=== PATIENT | female | born 1985 ===

== ENCOUNTER 2016-08-02 11:22 | Inpatient (IN) | payer OTHER ==
[~2016-08-02] VITALS: Ht 165.1 cm; Wt 79.5 kg
[2016-08-02] VITALS (14 sets, daily range): BP systolic 101–129; BP diastolic 63–75; PULSE 73–99; TEMP 98–98.4
[2016-08-02] MEDS ORDERED: PRENATAL1 TA7 PO (11:33)
[2016-08-02] MEDS ORDERED: COLACE 100100 MG/CAP PO (11:34)
[2016-08-02] MEDS ORDERED: ZOVIRAX800 MG PO (11:34)
[2016-08-02] MEDS ORDERED: PROBIOTIC FORMU1 CAP PO (11:35)
[2016-08-02] MEDS ORDERED: QUALITY VA PO (11:36)
[2016-08-02] MEDS ORDERED: MOTRIN 800800 MG/TAB PO (12:18)
[2016-08-02] MEDS ORDERED: PERCOCET 325 MG1 TA2 PO (12:18)
[2016-08-02 12:20] LABS: BASO # 0.1 (0.0-0.2); BASO % 0.4 % (0.0-2.0); EOS % 0.2 % (0-4.0); GRAN # 11.7 (1.4-6.5); GRAN % 81.7 % (42.2-75.2); LYMPH # 1.7 (1.2-3.4); LYMPH % 11.6 % (20.0-51.0); MEAN CELL VOLUME 90 fl (80.0-100.0); MEAN CORPUSCULAR HGB CONC 35 g/dl (33.0-37.0); MEAN PLATELET VOLUME 10.7 fl (7.4-10.4); MONO # 0.7 (0.1-0.6); MONO % 5.1 % (1.7-9.3); PLATELET COUNT 224 K/mm3 (130-400); RED BLOOD COUNT 3.76 M/mm3 (4.10-5.30); REDCELL DISTRIBUTION WIDTH-CV 12.7 % (11.5-14.5); WHITE BLOOD COUNT 14.2 K/mm3 (4.8-10.8)
[2016-08-02 12:22] LABS: HEMATOCRIT 33.7 % (37.0-47.0); HEMOGLOBIN 11.7 g/dl (12.5-16.0); MEAN CORPUSCULAR HEMOGLOBIN 31 pg (27.0-31.0)
[2016-08-03 09:15] VITALS: BP 108/68; PULSE 92; TEMP 97.5
[2016-08-03 12:41] VITALS: BP 116/76; PULSE 82; TEMP 98.1
[2016-08-03 16:01] VITALS: BP 122/78; PULSE 114; TEMP 97.1
[2016-08-03 21:20] VITALS: BP 126/65; PULSE 96; TEMP 97.8
[2016-08-04 08:17] VITALS: BP 115/70; PULSE 90
== END 2016-08-04 15:05 | disposition home or self-care (01) | DRG 775 ==
LOC: LDRO 11:22 → LDR 11:46 → OB 11:46
PROVIDERS: Obstetrics & Gynecology
PROC: 10E0XZZ Delivery of Products of Conception, External Approach (ICD-10-PCS; principal; 2016-08-02)
PROC: 0KQM0ZZ Repair Perineum Muscle, Open Approach (ICD-10-PCS; 2016-08-02)
DX: O70.1 Second degree perineal laceration during delivery (principal); Z37.0 Single live birth; Z3A.38 38 weeks gestation of pregnancy
CPT/HCPCS: J2590; J7120